=== PATIENT | female | born 1990 | race Caucasian/White ===

== ENCOUNTER 2021-10-14 16:58 | Emergency (ER) | payer BC, SELFPAY ==
--- NOTE | ~2021-10-14 | XR_ITS ---
EXAMINATION: XR foot RT min 3V DATE: 10/14/2021 17:22 INDICATION: Right foot injury and pain. TECHNIQUE: 4 views of right foot were obtained. COMPARISON: None. FINDINGS: Bone alignment is normal. No fracture. Joint spaces are well maintained. IMPRESSION: 1. No fracture. Reviewed, dictated and finalized at location A. [employer] IMPRESSION: 1. No fracture.
--- NOTE | ~2021-10-14 | XR_ITS ---
EXAMINATION: XR ankle RT min 3V DATE: 10/14/2021 17:22 INDICATION: Right ankle injury and pain. TECHNIQUE: 4 views of right ankle were obtained. COMPARISON: None. FINDINGS: Bone alignment is normal. No fracture. Joint spaces are well maintained. There is ankle sof t tissue swelling. IMPRESSION: 1. No fracture. Reviewed, dictated and finalized at location A. IMPRESSION: 1. No fracture.
[2021-10-14 17:07] VITALS: BP 116/67; PULSE 83; RESP 16; TEMP 36.4; O2SAT 98
--- NOTE | 2021-10-14 19:15 | ED.LOWEXIN ---
HPI - Extremity Injury (Lower) General Chief Complaint: Extremity Injury, Lower Stated Complaint: Right Ankle Pain Time Seen by Provider: 10/14/21 18:59 Source: patient and RN notes reviewed Mode of arrival: ambulatory Limitations: no limitations History of Present Illness HPI Narrative: Patient presents today complaining of right ankle injury. She fell down some steps and hyper plantarflexed her foot today. Denies numbness or tingling. Currently rates her pain 7/10. She has been ambulatory since the injury with increased pain. She has applied ice but taken no medication for symptoms prior to arrival. MD complaint: ankle injury Related Data Home Medications Medication Instructions Recorded Confirmed levonorgestrel 20 mcg/24 hours (7 1 device I-UTERINE ONCE 01/05/20 10/14/21 yrs) 52 mg intrauterine device multivitamin 1 tablet PO DAILY 01/05/20 10/14/21 fluoxetine 10 mg capsule 10 mg PO DAILY 03/25/21 10/14/21 baclofen 10 mg PO DAILY PRN 10/14/21 10/14/21 metoprolol succinate 25 mg PO DAILY 10/14/21 10/14/21 Allergies Allergy/AdvReac Type Severity Reaction Status Date / Time amoxicillin Allergy Rash Verified 10/14/21 18:54 Review of Systems Review of Systems: CONSTITUTIONAL: Denies body aches, fever, chills, or sweats. EYES: Denies visual changes, redness, or discharge. ENT: Denies rhinorrhea, congestion, sore throat, or otalgia. CARDIOVASCULAR: Denies chest pain, palpitations, or edema. RESPIRATORY: Denies cough or dyspnea. GASTROINTESTINAL: Denies abdominal pain, nausea, vomiting, or diarrhea. GENITOURINARY: Denies dysuria or hematuria. SKIN: Denies rash, itching, or wounds. MUSCULOSKELETAL: Denies back pain, or myalgia. + Right ankle injury NEUROLOGIC: Denies headache, numbness, tingling, or weakness. PSYCH: Denies depression or anxiety. [facility] Past Medical History Medical History (Updated 10/14/21 @ 19:19 by Bettina Mullen, ILYA, ) Vaginal delivery x 2 Family History Family History Mother Hypertension Grandparent Family history of pancreatic cancer Family history of lung cancer Family history of type 2 diabetes mellitus Family history of heart disease in male family member before age 55 Social History Social History Smoking status: Never smoker Alcohol intake: current Comments At time of signature, I have reviewed and agree with nursing past medical, surgical, social and family history unless otherwise noted. Please see nursing chart for further information. There is no relevant family history pertinent to the presenting complaint Exam Narrative: GENERAL: Well-appearing, well-nourished, and in no acute distress. HEAD: Normocephalic, atraumatic. EYES: EOMI. No redness or drainage. Conjunctivae normal. ENT: Mucous membranes pink and moist. NECK: Normal AROM. CHEST: No respiratory distress. EXTREMITIES: Right ankle: Tenderness about the entire anterior ankle. No tenderness to the foot. No edema noted. No ecchymosis or erythema noted. No deformity noted. Distal sensation intact. Capillary refill normal. Pedal pulse normal. Decreased range of motion due to pain. No bony tenderness to the lateral and medial malleolus. SKIN: Warm, dry, no rash. Capillary refill normal. Normal skin turgor. NEURO: No focal deficits. Alert and oriented x3. Gait steady. PSYCH: Normal affect. No signs of depression or anxiety. Course Vital Signs Vital signs: Vital Signs Temperature 97.5 F L 10/14/21 17:07 Pulse Rate 83 10/14/21 17:07 Respiratory Rate 16 10/14/21 17:07 Blood Pressure 116/67 10/14/21 17:07 Pulse Oximetry 98 10/14/21 17:07 Temperature 97.5 F L 10/14/21 17:07 Pulse Rate 83 10/14/21 17:07 Respiratory Rate 16 10/14/21 17:07 Blood Pressure 116/67 10/14/21 17:07 Pulse Oximetry 98 10/14/21 17:07 Reviewed MDM - Ex
== END 2021-10-14 19:25 | disposition home or self-care (01) ==
PROVIDERS: Emergency Provider Nurse Practitioner
DX: S93.401A Sprain of unspecified ligament of right ankle, initial encounter (principal); W10.9XXA Fall (on) (from) unspecified stairs and steps, initial encounter; F41.9 Anxiety disorder, unspecified; F32.A Depression, unspecified
CPT/HCPCS: 73610; 73630; 99213; G0463

== ENCOUNTER 2021-11-10 15:05 | Emergency (ER) | payer BC, SELFPAY ==
[2021-11-10 15:08] VITALS: BP 116/66; PULSE 91; RESP 18; TEMP 36.5; O2SAT 98
--- NOTE | 2021-11-10 15:30 | PC.NURSE ---
Pt to the intake desk and states that her dr called her in some zofran and she is going to leave. pt ambulated the the exit with no difficulty
== END 2021-11-11 05:15 | disposition left against medical advice (07) ==
LOC: ANHED 15:50
DX: K92.0 Hematemesis (principal)
CPT/HCPCS: 99199

== ENCOUNTER 2022-01-09 11:00 | Emergency (ER) | payer BC, SELFPAY ==
--- NOTE | 2022-01-09 11:07 | ED.URI ---
HPI - URI/Sore Throat General Chief Complaint: Upper Respiratory Infection Stated Complaint: Throat pain Time Seen by Provider: 01/09/22 11:07 Source: patient, family, RN notes reviewed and old records reviewed Mode of arrival: ambulatory Limitations: no limitations History of Present Illness HPI Narrative: 31-year-old female presents to the [facility] with complaints of a sore throat since yesterday. States she had a low-grade fever last night, 99. Pain with swallowing. States that she took an at home covid test and it was negative. MD elicited complaint: sore throat Related Data Home Medications Medication Instructions Recorded Confirmed levonorgestrel 20 mcg/24 hours (7 1 device I-UTERINE ONCE 01/05/20 01/09/22 yrs) 52 mg intrauterine device multivitamin 1 tablet PO DAILY 01/05/20 01/09/22 fluoxetine 10 mg capsule 10 mg PO DAILY 03/25/21 01/09/22 baclofen 10 mg PO DAILY PRN 10/14/21 01/09/22 metoprolol succinate 25 mg PO DAILY 10/14/21 01/09/22 Allergies Allergy/AdvReac Type Severity Reaction Status Date / Time amoxicillin Allergy Rash Verified 01/09/22 11:02 Review of Systems Review of Systems: All systems reviewed & are unremarkable except as noted in HPI and below Constitutional: Constitutional: Reports as per HPI, Denies chills, Reports fever(s) (99) and Denies headache(s) Eyes: Eyes: Reports no additional eye complaints ENT: Reports as per HPI, Denies vertigo, Denies dizziness, Denies headache(s), Denies nasal congestion and Reports sore throat Cardiovascular: Cardiovascular: Reports no additional cardiovascular complaints, Denies chest pain, Denies syncope, Denies rapid heart rate and Denies dyspnea Respiratory: Respiratory: Reports no additional respiratory complaints, Denies cough, Denies dyspnea and Denies wheezing Gastrointestinal: Gastrointestinal: Reports no additional gastrointestinal complaints, Denies abdominal pain, Denies diarrhea, Denies nausea and Denies vomiting Musculoskeletal: Musculoskeletal: Reports no additional musculoskeletal complaints and Denies numbness Integumentary/Breasts: Skin/Breast: Reports system reviewed and no additional complaints, except as docu Neurologic: Reports system reviewed and no additional complaints, except as documented, Denies vertigo, Denies dizziness, Denies syncope, Denies headache(s), Denies focal weakness and Denies numbness Psychiatric: Psychiatric: Reports no additional psychiatric complaints Allergic/Immunologic: Allergic/Immunologic: Reports no additional allergic/immunologic complaints and Denies wheezing PMFSH Past Medical History Medical History (Updated 01/09/22 @ 11:36 by Marlyn Coleman APRN) Anxiety and depression Vaginal delivery x 2 Family History Family History Mother Hypertension Grandparent Family history of pancreatic cancer Family history of lung cancer Family history of type 2 diabetes mellitus Family history of heart disease in male family member before age 55 Social History Social History Smoking status: Never smoker Alcohol intake: current Comments At the time of my signature, I reviewed and agree with the nursing past medical, surgical, social, and family history. There is no relevant family history pertinent to the patient complaint. Exam Const: General: cooperative, healthy appearing, no acute distress, well developed and alert Nutritional Appearance: well nourished Orientation/consciousness: patient oriented x3 Limitations: no limitations HENMT: Head: normal to inspection Ears: external ears normal, TM's normal bilaterally and EAC's normal General nose exam: Normal nasal mucous membranes and turbinates present Face and sinus: normal facial exam Teeth and gingiva: dentition normal Throat: posterior oropharynx normal, tonsils normal, uvula midline and no uvular edema Eyes: Conjunctivae
[2022-01-09 11:09] VITALS: BP 112/62; PULSE 70; RESP 16; TEMP 37.3; O2SAT 100
[2022-01-10 17:14] LABS: SARS-CoV-2 RNA PCR Negative
== END 2022-01-09 11:40 | disposition home or self-care (01) ==
PROVIDERS: Emergency Provider Nurse Practitioner; PCP Nurse Practitioner Family
DX: J02.9 Acute pharyngitis, unspecified (principal); Z20.822 Contact with and (suspected) exposure to COVID-19; F41.9 Anxiety disorder, unspecified; F32.A Depression, unspecified
CPT/HCPCS: 87081; 87804; 87880; 99213; C9803; G0463; U0003; U0005

== ENCOUNTER 2022-01-14 08:59 | Emergency (ER) | payer OTHER, BC, SELFPAY ==
--- NOTE | 2022-01-14 09:03 | ED.ANIMALBIT ---
HPI - Animal Bite General Chief Complaint: Animal Bite Stated Complaint: Cat Bite and scratch Time Seen by Provider: 01/14/22 09:10 Source: patient, RN notes reviewed and old records reviewed Mode of arrival: ambulatory Limitations: no limitations History of Present Illness HPI narrative: 31-year-old female presents to the [facility] with complaints of 2 puncture wounds from a cat to the left volar aspect mid forearm and then multiple scratches to the antecubital and to the fingers. 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 Occurred approximately 830 this morning Patient reports that she was taking a cat out of the carrier getting it ready for neuter when the cat bit and scratched her. She believes the cat is up-to-date on immunizations Unsure of last Tdap, states it was before 2016 complaint: animal bite Animal: cat Related Data Home Medications Medication Instructions Recorded Confirmed levonorgestrel 20 mcg/24 hours (7 1 device I-UTERINE ONCE 01/05/20 01/14/22 yrs) 52 mg intrauterine device multivitamin 1 tablet PO DAILY 01/05/20 01/09/22 fluoxetine 10 mg capsule 10 mg PO DAILY 03/25/21 01/14/22 baclofen 10 mg PO DAILY PRN 10/14/21 01/09/22 metoprolol succinate 25 mg PO DAILY 10/14/21 01/14/22 Allergies Allergy/AdvReac Type Severity Reaction Status Date / Time amoxicillin Allergy Rash Verified 01/09/22 11:02 Review of Systems Review of Systems: All systems reviewed & are unremarkable except as noted in HPI and below Constitutional: Constitutional: Reports no additional constitutional complaints, Denies chills and Denies fever(s) Eyes: Eyes: Reports no additional eye complaints ENT: Reports system reviewed and no additional complaints, except as documented Cardiovascular: Cardiovascular: Reports no additional cardiovascular complaints Respiratory: Respiratory: Reports no additional respiratory complaints Gastrointestinal: Gastrointestinal: Reports no additional gastrointestinal complaints Musculoskeletal: Musculoskeletal: Reports no additional musculoskeletal complaints Integumentary/Breasts: Skin/Breast: Reports as per HPI Comments: 2 puncture wounds left volar aspect upper forearm, multiple scratch wounds noted to the antecubital and hand. All clean. Neurologic: Reports system reviewed and no additional complaints, except as documented Psychiatric: Psychiatric: Reports no additional psychiatric complaints Allergic/Immunologic: Allergic/Immunologic: Reports no additional allergic/immunologic complaints PMFSH Past Medical History Medical History Anxiety and depression Vaginal delivery x 2 Family History Family History Mother Hypertension Grandparent Family history of pancreatic cancer Family history of lung cancer Family history of type 2 diabetes mellitus Family history of heart disease in male family member before age 55 Social History Social History Smoking status: Never smoker Alcohol intake: current Comments At the time of my signature, I reviewed and agree with the nursing past medical, surgical, social, and family history. There is no relevant family history pertinent to the patient complaint. Exam Const: General: healthy appearing, no acute distress and alert Nutritional Appearance: well nourished Orientation/consciousness: patient oriented x3 Limitations: no limitations HENMT: Head: normal to inspection Ears: external ears normal Eyes: Pupils: Equal, round and reactive pupils present Neck: Neck: normal visual inspection, no lymphadenopathy and no meningeal signs Chest: Chest palpation & inspection: normal inspection of the chest Resp: Effort & Inspection: normal respiratory effort and no use of accessory muscles Auscultation: clear to auscultation bilaterally, no crackles, no rales,
[2022-01-14 09:14] VITALS: BP 110/66; PULSE 68; RESP 18; TEMP 37.1; O2SAT 99
[2022-01-14] MEDS: TETANUS,DIPHTHERIA,AC PERTUSSIS ADULT (0.5 ML) BOOSTRIX IM (09:34)
== END 2022-01-14 10:05 | disposition home or self-care (01) ==
PROVIDERS: Emergency Provider Nurse Practitioner; PCP Nurse Practitioner Family
DX: S51.832A Puncture wound without foreign body of left forearm, initial encounter (principal); W55.01XA Bitten by cat, initial encounter; Z23 Encounter for immunization; F41.9 Anxiety disorder, unspecified; F32.A Depression, unspecified
CPT/HCPCS: 90471; 90715; 99213; G0463

== ENCOUNTER 2022-11-30 11:19 | Emergency (ER) | payer BC, SELFPAY ==
[2022-11-30 12:06] VITALS: BP 106/76; PULSE 67; RESP 16; TEMP 36.7; O2SAT 99
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
== END 2022-11-30 13:35 | disposition home or self-care (01) ==
PROVIDERS: Emergency Provider Nurse Practitioner Family
DX: J34.0 Abscess, furuncle and carbuncle of nose (principal); L03.211 Cellulitis of face; J34.89 Other specified disorders of nose and nasal sinuses; F41.9 Anxiety disorder, unspecified; F32.A Depression, unspecified
CPT/HCPCS: 99213; G0463

== ENCOUNTER 2022-11-30 19:37 | Emergency (ER) | payer BC, SELFPAY ==
[2022-11-30 19:39] VITALS: BP 135/81; PULSE 100; RESP 18; TEMP 36.4; O2SAT 99
--- NOTE | 2022-11-30 20:03 | ED.GENADULT ---
HPI - General Adult General Chief complaint: Skin/Abscess/Foreign Body Stated complaint: Facial swelling Time Seen by Provider: 11/30/22 19:45 History of Present Illness HPI narrative: 32-year-old female presenting to the emergency department for evaluation of left-sided facial cellulitis. Patient reports that her symptoms started on Thursday. Patient did have follow-up today with urgent care and was to be started on Bactrim and prednisone. Patient was told to start the antibiotic today and the prednisone tomorrow. Patient reports she did take the Bactrim approximately 4 PM. Patient was told to return to be evaluated if she had any worsening symptoms. Patient states that the redness has progressed across her left cheek. Patient also reports some increased left facial pain. Patient denies any difficulty breathing or swallowing. Patient denies any new swelling of tongue lips or throat. Related Data Home Medications Medication Instructions Recorded Confirmed levonorgestrel 20 mcg/24 hours (8 1 device intrauterine ONCE 01/05/20 11/30/22 yrs) 52 mg intrauterine device (Mirena) multivitamin (Daily Multi-Vitamin 1 tablet PO DAILY 01/05/20 11/30/22 tablet) fluoxetine 10 mg capsule 10 mg PO DAILY 03/25/21 11/30/22 metoprolol succinate 25 mg 25 mg PO DAILY 10/14/21 11/30/22 tablet,extended release 24 hr Allergies Allergy/AdvReac Type Severity Reaction Status Date / Time amoxicillin Allergy Rash Verified 11/30/22 20:16 vancomycin Allergy Hives Verified 12/01/22 13:31 Review of Systems Review of Systems: CONSTITUTIONAL: Denies fever, chills, or sweats. EYES: Denies visual changes, redness, or discharge. ENT: Denies rhinorrhea, congestion, sore throat, or otalgia. CARDIOVASCULAR: Denies chest pain, palpitations, or edema. RESPIRATORY: Denies cough or dyspnea. GASTROINTESTINAL: Denies abdominal pain, nausea, vomiting, or diarrhea. GENITOURINARY: Denies dysuria or hematuria. SKIN: See HPI MUSCULOSKELETAL: Denies back pain, joint pain, or myalgia. NEUROLOGIC: Denies headache, numbness, or weakness. PMFSH Past Medical History Medical History Anxiety and depression Vaginal delivery x 2 Family History Family History Mother Hypertension Grandparent Family history of pancreatic cancer Family history of lung cancer Family history of type 2 diabetes mellitus Family history of heart disease in male family member before age 55 Social History Social History Smoking status: Never smoker Alcohol intake: current Exam Narrative: APPEARANCE: Well appearing, no pain, no distress, well-nourished. HEAD: normocephalic, atraumatic. EYES: PERRLA/EOMI, conjunctivae clear. NOSE: Normal no drainage EARS:TMS clear with good light reflex. THROAT: Pharynx clear, no exudate. NECK: Supple. No adenopathy, no masses. RESPIRATORY: Airway patent, respirations nonlabored. Clear to auscultation bilaterally, no rales, rhonchi, wheezing. CARDIOVASCULAR: Regular rate and rhythm without murmurs rubs or gallops. ABDOMINAL: Soft, nontender, nondistended, normal bowel sounds MUSCULOSKELETAL: Moves all extremities. Strength/ROM intact, No edema, No calf tenderness. NEURO: Alert. Cranial nerves II through XII intact. Grossly intact SKIN: Facial cellulitis over the left zygomatic arch and left lateral aspects of the nose. No vesicular appearance. Course Course Emergency Course: Patient does appear to have a left-sided facial cellulitis. No vesicular appearance to suggest shingles. Patient did take her antibiotics approximately 7 hours ago. Suspect that the antibiotics have just not had enough time to be effective. However patient is being treated with a dose of IV antibiotics. Vital Signs Vital signs: Vital Signs Temperature 97.6 F 11/30/22 19:39 Pulse Rate 100
[2022-11-30] MEDS: CLINDAMYCIN 600 MG/D5W 50 ML 600 MG/50 ML PIGGYBACK 100 MG IVPB (20:25)
[2022-11-30] MEDS: SODIUM CHLORIDE 0.9% IV 1,000 ML 999 ML IV CONT (20:25)
[2022-11-30 20:33] LABS: Basophils Absolute Auto 0.1 K/mm3 (0.0-0.1); Basophils Percent Auto 0.5 % (0.2-1.2); Eosinophils Absolute Auto 0.1 K/mm3 (0-0.3); Eosinophils Percent Auto 1.1 % (0-4.4); Hematocrit 40.9 % (37.0-47.0); Hemoglobin 13.6 g/dL (12.0-15.0); Immature Granulocyte Absolute 0.03 K/mm3 (0.00-0.031); Immature Granulocyte Percent A 0.3 % (0-0.5); Lymphocytes Absolute Auto 1.78 K/mm3 (0.9-3.2); Lymphocytes Percent Auto 16.2 % (18.3-44.2); Mean Corpuscular HGB Conc 33.3 g/dl (32-36); Mean Corpuscular Hemoglobin 30.7 pg (26-34); Mean Corpuscular Volume 92.3 fl (80-100); Mean Platelet Volume 10.4 fl (7.4-10.4); Monocytes Absolute Auto 0.7 K/mm3 (0.1-0.6); Monocytes Percent Auto 6.6 % (2.6-8.5); Neutrophils Absolute Auto 8.3 K/mm3 (1.3-6.7); Neutrophils Percent Auto 75.3 % (45.5-73.1); Platelet Count Result 180 k/mm3 (150-375); Red Blood Count 4.43 M/mm3 (4.2-5.4); Red Cell Distribution Width 12.6 % (11.5-14.5)
[2022-11-30 20:44] LABS: Potassium 3.8 mmol/L (3.4-5.0)
[2022-11-30 20:47] LABS: Anion Gap 4 mmol/L (8-16); Blood Urea Nitrogen 11 mg/dL (7-17); Calcium 8.6 mg/dL (8.4-10.2); Carbon Dioxide 30 mmol/L (22-30); Chloride 100 mmol/L (98-107); Estimated CRCL calculation 101 ml/min; Estimated Glomerular Filt Rate > 60; Glucose 109 mg/dL (65-110); Sodium 134 mmol/L (137-145)
== END 2022-11-30 21:50 | disposition home or self-care (01) ==
PROVIDERS: Emergency Provider Emergency Medicine
DX: L03.211 Cellulitis of face (principal); F41.9 Anxiety disorder, unspecified; F32.A Depression, unspecified
CPT/HCPCS: 36415; 80048; 85025; 96365; 99284; J7030

== ENCOUNTER 2022-12-01 09:46 | Emergency (ER) | payer BC, SELFPAY ==
--- NOTE | ~2022-12-01 | CT_ITS ---
EXAMINATION: CT facial bones w con DATE: 12/01/2022 12:36 INDICATION: Facial cellulitis TECHNIQUE: Computed tomography (CT) of the facial bones was performed with 75 cc Omnipaque 350 intrav enous contrast. The dose-length product was 372.47 mGy-cm. Automated exposure control and iterative r econstruction technique were employed. COMPARISON: None FINDINGS: No intracranial abnormality is identified. Mild subcutaneous edema of the left maxillary so ft tissues. Minimal underlying fatty infiltration. No discrete walled off fluid collection to suggest abscess. Mild submandibular lymphadenopathy, likely reactive.. No significant bone or joint abnormal ity. Paranasal sinuses and mastoids are pneumatized. Orbits are unremarkable. No post septal abnormal ities. IMPRESSION: 1. Mild subcutaneous edema and underlying fatty infiltration in the left maxillary region, suspicious for cellulitis. No evidence for abscess. Reviewed, dictated and finalized at location A. ASSEMBLER IMPRESSION: 1. Mild subcutaneous edema and underlying fatty infiltration in the left maxill jules region, suspicious for cellulitis. No evidence for abscess.
[2022-12-01 09:48] VITALS: BP 120/66; PULSE 71; RESP 18; TEMP 36.8; O2SAT 99
--- NOTE | 2022-12-01 11:16 | ED.SKABFB ---
HPI - Skin/Abscess/Foreign Bdy General Chief complaint: Skin/Abscess/Foreign Body Stated complaint: cellulitis left cheek Time Seen by Provider: 12/01/22 11:07 History of Present Illness HPI narrative: Pt presents with worsening cellulitis to left cheek. Pt was seen in ER yesterday for same and had labs and was given IV clindamycin. Pt says she has been on bactrim and prednisone for a few days. Pt denies fever or chills. Related Data Home Medications Medication Instructions Recorded Confirmed levonorgestrel 20 mcg/24 hours (8 1 device intrauterine ONCE 01/05/20 11/30/22 yrs) 52 mg intrauterine device (Mirena) multivitamin (Daily Multi-Vitamin 1 tablet PO DAILY 01/05/20 11/30/22 tablet) fluoxetine 10 mg capsule 10 mg PO DAILY 03/25/21 11/30/22 metoprolol succinate 25 mg 25 mg PO DAILY 10/14/21 11/30/22 tablet,extended release 24 hr Allergies Allergy/AdvReac Type Severity Reaction Status Date / Time amoxicillin Allergy Rash Verified 11/30/22 20:16 vancomycin Allergy Hives Verified 12/01/22 13:31 Review of Systems Review of Systems: All systems reviewed & are unremarkable except as noted in HPI and below PMFSH Past Medical History Medical History Anxiety and depression Vaginal delivery x 2 Family History Family History Mother Hypertension Grandparent Family history of pancreatic cancer Family history of lung cancer Family history of type 2 diabetes mellitus Family history of heart disease in male family member before age 55 Social History Social History Smoking status: Never smoker Alcohol intake: current Exam Const: General: healthy appearing and no acute distress Nutritional Appearance: well nourished Orientation/consciousness: patient oriented x3 Limitations: no limitations HENMT: Mouth: Yes Normal oral and palatal mucosa present Teeth and gingiva: dentition normal Throat: posterior oropharynx normal Eyes: Conjunctivae: conjunctivae normal Pupils: Equal, round and reactive pupils present EOM: EOMs intact bilaterally Neck: Neck: normal visual inspection Resp: Effort & Inspection: normal respiratory effort Auscultation: clear to auscultation bilaterally Cardio: Rate: regular rate Rhythm: regular rhythm Skin: Other: cellulitis left zygoma and toward bridge of nose, no abscess felt and no dental source noted Neuro: General: patient oriented x3, moves all extremities and no meningeal signs Cranial nerves: Yes Nystagmus not present Speech: normal speech Gait exam (Neuro): Normal gait present Extrem: General: normal to inspection and no clubbing, cyanosis or edema Psych: Mental Status: mental status grossly normal Affect: normal affect Attitude: cooperative Course Vital Signs Vital signs: Vital Signs Temperature 98.3 F 12/01/22 09:48 Pulse Rate 71 12/01/22 09:48 Respiratory Rate 18 12/01/22 09:48 Blood Pressure 120/66 12/01/22 09:48 Pulse Oximetry 99 12/01/22 09:48 Oxygen Delivery Room Air 12/01/22 09:48 Temperature 98.3 F 12/01/22 09:48 Pulse Rate 71 12/01/22 09:48 Respiratory Rate 18 12/01/22 09:48 Blood Pressure 120/66 12/01/22 09:48 Pulse Oximetry 99 12/01/22 09:48 Oxygen Delivery Room Air 12/01/22 09:48 MDM - Skin/Abscess/Foreign Bdy MDM Narrative Medical decision making narrative: pt claims cellulitis is worse today in spite of bactrim (pt taking 1 po bid not 2) and IV clinda yesterday. Will repeat labs and CT face to make sure is not NEC or subtle abscess. Will give IV vanco dose here while awaiting labs and CT. CT shows cellulitis but no abscess, wbc has improved since yesterday. Pt got hives from IV Vanco so given benadryl and solumedrol which resolved hives. Pt is fine not getting another antibiotic IV. Will double dose of bactrim to 2
[2022-12-01 11:53] LABS: Basophils Percent Auto 0.2 % (0.2-1.2); Eosinophils Percent Auto 0.1 % (0-4.4); Hematocrit 43.3 % (37.0-47.0); Hemoglobin 14.4 g/dL (12.0-15.0); Immature Granulocyte Absolute 0.04 K/mm3 (0.00-0.031); Immature Granulocyte Percent A 0.5 % (0-0.5); Lymphocytes Absolute Auto 0.74 K/mm3 (0.9-3.2); Lymphocytes Percent Auto 8.5 % (18.3-44.2); Mean Corpuscular HGB Conc 33.3 g/dl (32-36); Mean Corpuscular Hemoglobin 30.6 pg (26-34); Mean Corpuscular Volume 91.9 fl (80-100); Mean Platelet Volume 10.4 fl (7.4-10.4); Monocytes Absolute Auto 0.1 K/mm3 (0.1-0.6); Monocytes Percent Auto 1.5 % (2.6-8.5); Neutrophils Absolute Auto 7.8 K/mm3 (1.3-6.7); Neutrophils Percent Auto 89.2 % (45.5-73.1); Platelet Count Result 197 k/mm3 (150-375); Red Blood Count 4.71 M/mm3 (4.2-5.4); Red Cell Distribution Width 12.4 % (11.5-14.5); White Blood Count 8.7 K/mm3 (4.5-10.0)
[2022-12-01 12:03] LABS: Prothrombin Time 12.9 Seconds (11.1-14.7)
[2022-12-01 12:04] LABS: Partial Thromboplastin Time 27.9 SECONDS (22.3-36.8)
[2022-12-01 12:05] LABS: Alanine Aminotransferase 18 U/L (6-35); Albumin Level 4.8 g/dL (3.5-5.1); Alkaline Phosphatase 69 U/L (38-126); Anion Gap 6 mmol/L (8-16); Aspartate Amino Transferase 22 U/L (14-36); Bilirubin,Total 0.4 mg/dL (0.2-1.3); Blood Urea Nitrogen 7 mg/dL (7-17); CRP 2.3 mg/dL (<1.0); Calcium 9.2 mg/dL (8.4-10.2); Carbon Dioxide 27 mmol/L (22-30); Chloride 104 mmol/L (98-107); Estimated CRCL calculation 101 ml/min; Estimated Glomerular Filt Rate > 60; Glucose 102 mg/dL (65-110); Potassium 4.1 mmol/L (3.4-5.0); Sodium 137 mmol/L (137-145)
[2022-12-01 12:07] LABS: Lactic Acid Reflex 1.1 mmol/L (0.7-2.0)
[2022-12-01] MEDS: diphenhydrAMINE HCl INJ 50 MG/ML VIAL 25 MG IV PUSH (13:30)
[2022-12-01] MEDS: methylPREDNISolone SOD SUCC 125 MG VIAL IV PUSH (13:30)
== END 2022-12-01 15:18 | disposition home or self-care (01) ==
PROVIDERS: Emergency Provider Emergency Medicine
DX: L03.211 Cellulitis of face (principal); L50.0 Allergic urticaria; T36.8X5A Adverse effect of other systemic antibiotics, initial encounter; F41.9 Anxiety disorder, unspecified; F32.A Depression, unspecified
CPT/HCPCS: 36415; 70487; 80053; 83605; 85025; 85610; 85730; 86140; 87040; 96365; 96366; 96375; 99284; J1200; J2930; J3370; Q9967

== ENCOUNTER 2023-02-05 17:23 | Emergency (ER) | payer BC, SELFPAY ==
--- NOTE | ~2023-02-05 | CT_ITS ---
EXAMINATION: CT abdomen pelvis w con DATE: 02/05/2023 21:56 INDICATION: Right sided abdominal pain, nausea and vomiting TECHNIQUE: Computed tomography (CT) of the abdomen and pelvis was performed with 100 CC Omnipaque 350 intravenous contrast. Automated exposure control and iterative reconstruction technique were employe d. Exam dose: 582.04 mGy-cm total exam DLP. COMPARISON: 02/05/2023 Limited abdominal ultrasound examination FINDINGS: The lung bases are clear. Normal heart size. No pericardial or pleural effusion. The liver, spleen, pancreas, adrenal glands and kidneys are unremarkable. The gallbladder is distended. No gallbladder wall thickening or pericholecystic fluid or fat strandin g. No bile duct or pancreatic duct dilatation. No urinary tract calculus or hydroureteronephrosis. There is an IUD in the uterus, the left limb approaching the outer margin of the uterine fundus poste rosuperiorly. The ovaries, adnexal areas and urinary bladder are unremarkable. There are some air-fluid levels of the small and large bowel without abnormal dilatation or obstructi on. No bowel wall thickening is noted. The appendix is normal. No intraperitoneal free air. Small fat-containing umbilical hernia. Included skeletal structures are unremarkable. IMPRESSION: Normal appendix Scattered small and large bowel air-fluid levels, suggesting enterocolitis IUD; one limb approaches the outer margin of the uterus posterosuperiorly Reviewed, dictated and finalized at Location A. Reviewed, dictated and finalized at location A.
--- NOTE | ~2023-02-05 | US_ITS ---
US abdomen limited DATE: 02/05/2023 21:15 INDICATION: Right upper quadrant abdominal pain, nausea and vomiting TECHNIQUE: Real-time imaging of liver, pancreas, gallbladder COMPARISON: None FINDINGS: No hepatic or pancreatic space-occupying mass lesion is detected. Normal hepatopedal portal venous flow direction. No gallstones or gallbladder wall thickening or pericholecystic abnormal flui d collection. Negative sonographic Willis's sign. Common bile duct measures 2.6 mm, normal. IMPRESSION: No significant abnormality Reviewed, dictated and finalized at Location A. Reviewed, dictated and finalized at location A. IMPRESSION: No significant abnormality
[2023-02-05 17:27] VITALS: BP 109/82; PULSE 110; RESP 18; TEMP 36.4; O2SAT 100
[2023-02-05 17:48] LABS: Basophils Percent Auto 0.3 % (0.2-1.2); Eosinophils Absolute Auto 0.1 K/mm3 (0-0.3); Eosinophils Percent Auto 0.5 % (0-4.4); Hematocrit 43.1 % (37.0-47.0); Hemoglobin 14.8 g/dL (12.0-15.0); Immature Granulocyte Absolute 0.03 K/mm3 (0.00-0.031); Immature Granulocyte Percent A 0.3 % (0-0.5); Lymphocytes Absolute Auto 0.59 K/mm3 (0.9-3.2); Lymphocytes Percent Auto 5.4 % (18.3-44.2); Mean Corpuscular HGB Conc 34.3 g/dl (32-36); Mean Corpuscular Volume 90.2 fl (80-100); Mean Platelet Volume 10.1 fl (7.4-10.4); Monocytes Absolute Auto 0.5 K/mm3 (0.1-0.6); Monocytes Percent Auto 4.9 % (2.6-8.5); Neutrophils Absolute Auto 9.7 K/mm3 (1.3-6.7); Neutrophils Percent Auto 88.6 % (45.5-73.1); Platelet Count Result 171 k/mm3 (150-375); Red Blood Count 4.78 M/mm3 (4.2-5.4); Red Cell Distribution Width 12.5 % (11.5-14.5); White Blood Count 10.9 K/mm3 (4.5-10.0)
[2023-02-05 17:54] LABS: Alanine Aminotransferase 24 U/L (6-35); Albumin Level 4.9 g/dL (3.5-5.1); Alkaline Phosphatase 63 U/L (38-126); Anion Gap 10 mmol/L (8-16); Aspartate Amino Transferase 26 U/L (14-36); Blood Urea Nitrogen 13 mg/dL (7-17); Calcium 9.2 mg/dL (8.4-10.2); Carbon Dioxide 24 mmol/L (22-30); Chloride 104 mmol/L (98-107); Estimated CRCL calculation 118 ml/min; Estimated Glomerular Filt Rate > 60; Glucose 109 mg/dL (65-110); Lipase 87 U/L (23-300); Potassium 3.6 mmol/L (3.4-5.0); Sodium 138 mmol/L (137-145)
[2023-02-05 20:14] LABS: Appearance Urine Clear (Clear); Bilirubin Urine Negative (Negative); Blood Urine Trace-intact (Negative); Color Urine Yellow (Yellow); Glucose Urine UA Negative (Negative); Ketones Urine 3+ mg/dL (Negative); Leukocyte Esterase Ur Negative LEU/UL (Negative); Nitrate Urine Negative (Negative); Protein Urine 1+ mg/dL (Negative); Specific Grav Ur 1.015 (1.001-1.035); Urobilinogen Urine 0.2 mg/dL (<2.0); pH Urine >=9.0 (5.0-9.0)
--- NOTE | 2023-02-05 20:22 | ED.ABDPAIN ---
HPI - Abdominal Pain General Chief Complaint: Abdominal Pain Stated Complaint: right sided abdominal pain Time Seen by Provider: 02/05/23 19:45 Source: patient Mode of arrival: ambulatory Limitations: no limitations History of Present Illness HPI narrative: Patient is a 32-year-old female who presents to the ED with report of upper abdominal pain. Patient reports she developed pain in her epigastric region around 9 AM this morning at work. Pain persisted and has since become more localized to the right upper abdomen. Radiates around to right mid back. She also reports having several episodes of nausea with emesis, diarrhea this morning. She denies any hematemesis, rectal bleeding, melena, fevers, urinary sx's, CP, SOB. Patient has been unable to keep down any food, fluid, pain medicine. No sick contacts. Related Data Home Medications Medication Instructions Recorded Confirmed levonorgestrel 21 mcg/24 hours (8 1 device intrauterine ONCE 01/05/20 01/14/23 yrs) 52 mg intrauterine device (Mirena) multivitamin (Daily Multi-Vitamin 1 tablet PO DAILY 01/05/20 01/14/23 tablet) fluoxetine 10 mg capsule 10 mg PO DAILY 03/25/21 01/14/23 metoprolol succinate 25 mg 25 mg PO DAILY 10/14/21 01/14/23 tablet,extended release 24 hr Allergies Allergy/AdvReac Type Severity Reaction Status Date / Time amoxicillin Allergy Rash Verified 01/14/23 14:26 vancomycin Allergy Hives Verified 01/14/23 14:26 Review of Systems Review of Systems: CONSTITUTIONAL: Denies fever, chills, or sweats. CARDIOVASCULAR: Denies chest pain. RESPIRATORY: Denies dyspnea. GASTROINTESTINAL: See HPI. GENITOURINARY: Denies dysuria or hematuria. SKIN: Denies rash or itching. MUSCULOSKELETAL: See HPI. NEUROLOGIC: Denies headache, numbness, or weakness. All systems reviewed & are unremarkable except as noted in HPI and below PMFSH Past Medical History Medical History Anxiety and depression Vaginal delivery x 2 Surgical History Surgical History No pertinent past surgical history Family History Family History Mother Hypertension Grandparent Family history of pancreatic cancer Family history of lung cancer Family history of type 2 diabetes mellitus Family history of heart disease in male family member before age 55 Social History Social History Smoking status: Never smoker Alcohol intake: current Substance use: never Substance use type: does not use Lack of Transportation: No Lack of Food: Never True Current Housing: I Have Housing Concerned About Future Housing: No Difficulty Paying Gas/Electric Bills: No Difficulty Paying for Meds: No Currently Unemployed: No Education: Associate Degree Difficulty w/ Childcare or Family Care: No Exam Narrative: GENERAL: Well appearing, obese, non-toxic, in no acute distress. HEAD: Normocephalic, atraumatic. NECK: Supple. No adenopathy, no masses. RESPIRATORY: Airway patent, respirations nonlabored. Clear to auscultation bilaterally, no rales, rhonchi, wheezing. CARDIOVASCULAR: Regular rate and rhythm without murmurs, rubs, or gallops. Peripheral pulses 2+ and equal bilaterally. ABDOMINAL: Soft, tenderness throughout epigastric region and right upper quadrant, nondistended, no hepatosplenomegaly. Normoactive BS. MUSCULOSKELETAL: Moves all extremities. Strength/ROM intact without gross deformities. SKIN: Warm, dry, normal color. No rashes. NEURO: A&O X3. Speech clear. Cranial nerves II-XII grossly intact. Steady gait. No ataxic movements. PSYCHIATRIC: Appropriate mood and affect. Normal interaction. Course Vital Signs Vital signs: Vital Signs Temperature 97.6 F 02/05/23 17:27 Pulse Rate 110 H 02/05/23 17:27 Respiratory
[2023-02-05 20:32] LABS: Add Urine Microscopic? YES; Squamous Epithelial Cell Urine Few /hpf (Few); WBC Urine 0-3 /hpf (0-3)
[2023-02-05 20:33] LABS: Bacteria Urine Trace /hpf
[2023-02-05 20:34] LABS: Mucus Urine Few /lpf; Pregnancy On Board Control Positive; Urine Pregnancy Test Negative
[2023-02-05] MEDS: SODIUM CHLORIDE 0.9% IV 1,000 ML 999 ML IV CONT (20:40)
[2023-02-05] MEDS: MORPHINE SULFATE (*CRX) 4 MG/ML INJ IV PUSH (20:40)
[2023-02-05] MEDS: ONDANSETRON INJ 4 MG/2 ML VIAL IV PUSH ×2 (20:49→23:27)
[2023-02-05] MEDS: FAMOTIDINE 20 MG/2 ML VIAL IV PUSH (23:27)
== END 2023-02-05 23:58 | disposition home or self-care (01) ==
PROVIDERS: Emergency Medicine; Emergency Provider Physician Assistant
DX: K52.9 Noninfective gastroenteritis and colitis, unspecified (principal); R10.9 Unspecified abdominal pain; F41.9 Anxiety disorder, unspecified; F32.A Depression, unspecified
CPT/HCPCS: 36415; 74177; 76705; 80053; 81001; 81025; 83690; 85025; 96361; 96374; 96375; 96376; 99284; J2270; J2405; J7030; Q9967

== ENCOUNTER 2024-05-06 08:05 | Outpatient (CLI) | payer BC, SELFPAY ==
--- NOTE | ~2024-05-06 | MMUS_ITS ---
EXAMINATION: MM diagnostic teri BI w christina, US breast RT limited HISTORY: Palpable right breast abnormality TECHNIQUE: Additional 3-D tomosynthesis images of the breasts were performed and synthetic 2-D images were generated. CAD analysis was submitted and interpreted. High resolution Limited right breast ult rasound was performed. COMPARISON: No prior studies for comparison. BREAST PARENCHYMAL COMPOSITION: Not dense: There are scattered areas of fibroglandular density. FINDINGS: MAMMOGRAPHIC FINDINGS: There are no suspicious masses, calcifications or architectural distortion in either breast to sugges t malignancy. ULTRASOUND: Limited right breast ultrasound: Normal heterogeneous echotexture without focal solid or cystic mass. IMPRESSION: 1. No evidence for malignancy in either breast. 2. Routine yearly screening mammogram and regular clinical breast examination are recommended. BI-RADS Category 1: Negative Reviewed, dictated and finalized at location B. IMPRESSION: 1. No evidence for malignancy in either breast. 2. Routine yearly screening mammogram and regular clinical breast examination a re recommended. BI-RADS Category 1: Negative
== END 2024-05-06 08:06 ==
LOC: MICIMG 08:07
PROVIDERS: PCP Nurse Practitioner Obstetrics & Gynecology; Visit Provider Nurse Practitioner Obstetrics & Gynecology
DX: N63.10 Unspecified lump in the right breast, unspecified quadrant (principal)
CPT/HCPCS: 76642; 77062; 77066; G0279

== ENCOUNTER 2025-08-10 10:23 | Outpatient (CLI) | payer BC, SELFPAY ==
--- NOTE | ~2025-08-10 | MMUS_ITS ---
EXAMINATION: MM diagnostic teri BI w christina, US breast BI limited INDICATION: 34-year old female; Presents for evaluation of palpable lump felt by clinician in the right breast at 10:00 location, Green left nipple discharge about 2 weeks ago and discoloration with skin depression on the left breast. COMPARISON: 05/06/2024 TECHNIQUE: Digital breast tomosynthesis CC and MLO views of Both breasts and compression views of Both breasts were obtained with computer-aided detection to assist in interpretation of the study. MAMMOGRAM FINDINGS: There are scattered areas of fibroglandular density. There are no suspicious masses, calcifications, architectural distortion or any other abnormality in either breast. RIGHT BREAST ULTRASOUND FINDINGS: Targeted sonographic evaluation of the palpable area was completed. There is no sonographic abnormality that correlates to the area of palpable lump. LEFT BREAST ULTRASOUND FINDINGS: Targeted sonographic evaluation of the palpable area and area of skin discoloration as well as subareolar region was completed. There is no sonographic abnormality identified. IMPRESSION: 1. No mammographic or sonographic finding correlates to the palpable lump in the RIGHT breast. 2. No mammographic evidence of malignancy within the LEFT breast. Recommendations: Clinical management of patient's palpable lumps and nipple discharge. Follow-up as clinically warranted. Consider bilateral breast MRI for further evaluation of nipple discharge if clinically warranted. BI-RADS 1, NEGATIVE Reviewed, dictated and finalized at location B. IMPRESSION: 1. No mammographic or sonographic finding correlates to the palpable lump in th e RIGHT breast. 2. No mammographic evidence of malignancy within the LEFT breast. Recommendations: Clinical management of patient's palpable lumps and nipple discharge. Follow-up as clinically warranted. Consider bilateral breast MRI for further evaluation of nipple discharge if clinically warranted. BI-RADS 1, NEGATIVE
--- OUTSIDE RECORDS SUMMARY | 2025-08-10 11:34 | XMS_ITS | Encounter Summary ---
Author Organization [facility] Address [address] [place] [address] Care Team Providers Care Balloon Artist Name Role Phone Unavailable Primary Care Provider Unavailabl e Encounter Details Date Type Department Care Team (Late st Contact Info) Description 01/21/2023 Lab Requisition [facility] DermPath Lab [address] [place] [address] Gonzalez Majano MD [address] [place] [address] Social History Tobacco Use Types Packs/Day Years Used Date Smoking Tobacco: Never Assessed Comments Unknown Sex and Gender Information Value Date Recorded Sex Assigned at Not on file Legal Sex Female 3:36 PM 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 Gender Identity Not on file Sexual Orientation Not on file documented as of this encounter Plan of Treatment Not on file documented as of this encounter Procedures Procedure Name Priority Date/Time Associated Diagnosis Comments DERMATOPATHOLOGY Routine 01/21/2023 12:0 0 AM 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 documented in this encounter Results * DERMATOPATHOLOGY (01/21/2023 12:00 AM 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) Case Report Dermatopathology Report Case: [id number] Authorizing Provider: Gonzalez Majano MD Collected: 01/21/2023 12:00 AM Ordering Location: [facility] DermPath Lab Received: 01/21/2023 04:36 PM Pathologist: Coty Carr MD Specimen: Skin, right upper forehead at hairline 3 2:50 PM 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 DERMATOPATHOLOGY LABORATORY Final Diagnosis Specimen A. SKIN, right upper forehead at hairline: NO TISSUE RECEIVED IN VIAL 3 2:50 PM 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 DERMATOPATHOLOGY LABORATORY at 1450 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 Clinical History Nevus R/O atypia. Path#[id number] 3 2:50 PM 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 DERMATOPATHOLOGY LABORATORY Gross Description Specimen A: Received is one formalin filled container labeled with the patient's name and designated right upper forehead at hairline, no specimen vial. 3 2:50 PM [facility] DERMATOPATHOLOGY LABORATORY Microscopic Description Specimen A. SKIN, right upper forehead at hairline: Received was one formalin filled container. The vial had no tissue for processing. COMMENT: This finding was discussed with the clinician's office. 3 2:50 PM 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 DERMATOPATHOLOGY LABORATORY Disclaimer An external and internal positive and negative controls are appropriate for the histochemical, immunohistochemical and immunofluorescence stain(s) in this case (if any), except where stated explicitly. The performance characteristics of the stain(s) cited in this report were developed and its performance characteristic determined by the Dermatopathology Laboratory at [facility], directed by Dr. Tank Lugo. These tests need not be, and therefore are not, approved by the [place] Food and Drug Administration. The tests are used for clinical purposes. Billing Codes Specimen Charges Stain Charges 3 2:50 PM 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 DERMATOPATHOLOGY LABORATORY Embedded Images 3 2:50 PM [facility] DERMATOPATHOLOGY LABORATORY Pathology/Cytolog y TISSUE SPECIMEN FROM SKIN / Unknown 01/21/2023 01/21/2023 4:36 PM 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 Gonzalez Majano MD LAB - PATHOLOGY/CYTOLOGY ORDER MINA Final Result DERMATOPATHOLOGY LABORATORY [facility] - Department of Dermatology [address] [place] [address], [facility] [phone] documented in this encounter Visit Diagnoses Not on filedocumented in this encounter
--- OUTSIDE RECORDS SUMMARY | 2025-08-10 11:34 | XMS_ITS | Encounter Summary ---
Author Organization [facility] Address [address] [place] [address] Care Team Providers Care Relay Assembler Name Role Phone Unavailable Primary Care Provider Unavailabl e Encounter Details Date Type Department Care Team (Late st Contact Info) Description 01/22/2021 Lab Requisition [facility] DermPath Lab [address] [place] [id number] Gonzalez Majano MD [address] [place] [address] Social History Tobacco Use Types Packs/Day Years Used Date Smoking Tobacco: Never Assessed Comments Unknown Sex and Gender Information Value Date Recorded Sex Assigned at Not on file Legal Sex Female 3:36 PM GAS METER INSTALLER HELPER Gender Identity Not on file Sexual Orientation Not on file documented as of this encounter Plan of Treatment Not on file documented as of this encounter Procedures Procedure Name Priority Date/Time Associated Diagnosis Comments DERMATOPATHOLOGY Routine 01/18/2021 3:33 AM GAS METER INSTALLER HELPER documented in this encounter Results * DERMATOPATHOLOGY (01/18/2021 3:33 AM GAS METER INSTALLER HELPER) Case Report Dermatopathology Report Case: [id number] Authorizing Provider: Gonzalez Majano MD Collected: 01/18/2021 03:33 AM Ordering Location: [facility] DermPath Lab Received: 01/22/2021 06:31 AM Pathologist: Autumn Leahy MD Specimen: Skin, right abd 4:52 PM GAS METER INSTALLER HELPER DERMATOPATHOLOGY LABORATORY Final Diagnosis Specimen A. SKIN, right abd: LENTIGINOUS MELANOCYTIC NEVUS, COMPOUND TYPE, IRRITATED (COMPOUND MELANOCYTIC NEVUS WITH ARCHITECTURAL DISORDER) (D22.5) 4:52 PM GAS METER INSTALLER HELPER DERMATOPATHOLOGY LABORATORY at [address] [facility] Clinical History Nevus R/O atypia. Path# [id number]. 4:52 PM [facility] DERMATOPATHOLOGY LABORATORY Gross Description Specimen A: Received is one formalin filled container labeled with the patient's name and designated right abd. The specimen consists of a shave biopsy measuring [id number]. Jar 0. 4:52 PM [facility] DERMATOPATHOLOGY LABORATORY Microscopic Description Specimen A. SKIN, right abd: This is a compound nevus. There is melanin pigment in the stratum corneum. There is architectural disorder characterized by a lentiginous proliferation of melanocytes between irregular nests of cells along the dermal-epidermal junction, highlighted by MART-1/Melan-A immunohistochemical staining. There is underlying fibroplasia of the papillary dermis. The intradermal component is bland appearance and matures with depth. Original and deeper sections were reviewed. (Compound Fercho's Nevus or Compound Dysplastic Nevus) 4:52 PM [facility] DERMATOPATHOLOGY LABORATORY Disclaimer An external and internal positive and negative controls are appropriate for the histochemical, immunohistochemical and immunofluorescence stain(s) in this case (if any), except where stated explicitly. The performance characteristics of the stain(s) cited in this report were developed and its performance characteristic determined by the Dermatopathology Laboratory at [facility], directed by Dr. Tank Lugo. These tests need not be, and therefore are not, approved by the [place] Food and Drug Administration. The tests are used for clinical purposes. Billing Codes Specimen Charges Stain Charges 15116 1 74091 1 4:52 PM [facility] DERMATOPATHOLOGY LABORATORY Embedded Images 4:52 PM [facility] DERMATOPATHOLOGY LABORATORY Pathology/Cytolo gy TISSUE SPECIMEN FROM SKIN / Unknown 01/18/2021 3:33 AM GAS METER INSTALLER HELPER 01/22/2021 6:31 AM [facility] us Gonzalez Majano MD LAB - PATHOLOGY/CYTOLOGY ORDER MINA Final Result DERMATOPATHOLOGY LABORATORY [facility] - Department of Dermatology [address] [phone] documented in this encounter Visit Diagnoses Not on filedocumented in this encounter
--- OUTSIDE RECORDS SUMMARY | 2025-08-10 11:34 | XMS_ITS | Clinical Summary ---
Author Organization [facility] Address [address] [place] [address] Care Team Providers Care Production Support Engineer Name Role Phone Unavailable Primary Care Provider Unavailabl e Source Comments [facility],non-owned Affiliates and Associated Physician Practices is amultiple site organization consisting of ambulatory clinics and hospital sitesin [place], [place], [place]. This disclosure is being madepursuant to the Care Everywhere program and may not contain all information available regarding this patient. 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 Gender Identity Not on file Sexual Orientation Not on file Plan of Treatment Health Maintenance Due Date Last Done Comments HIV SCREENING 2007 HEPATITIS C SCREENING 11/22/2010 DTAP/TDAP/TD VACCINES (1 - Tdap) 2011 HEPATITIS B VACCINE (1 of 3 - 19+ 3-dose series) 2011 PAP SMEAR 2013 HPV VACCINE (1 - 3-dose SCDM series) 2019 DEPRESSION SCREENING 11/16/2024 COVID-19 VACCINE ( - 2023-2 5 season) 2025 INFLUENZA VACCINE (#1) 2025 ZOSTER VACCINE (1 of 2) 2042 HIB VACCINE Aged Out No longer eligi ble based on patient's age to complete this topic MENINGOCOCCAL (Group B) VACC INE SHARED DECISION-MAKING Aged Out No longer eligibl e based on patient's age to complete this topic MENINGOCOCCAL GROUPS A/C/Y/W VACCINE Aged Out No longer eligible b ased on patient's age to complete this topic PNEUMOCOCCAL VACCINE Aged Out No long er eligible based on patient's age to complete this topic Insurance ANNIE
--- OUTSIDE RECORDS SUMMARY | 2025-08-10 11:34 | XMS_ITS | Encounter Summary ---
Author Organization [facility] Address [address] [place] [address] Care Team Providers Care Independent Sales Representative Name Role Phone Unavailable Primary Care Provider Unavailabl e Encounter Details Date Type Department Care Team (Late st Contact Info) Description 02/05/2023 Lab Requisition [facility] DermPath Lab [address] [place] [address] Gonzalez Majano MD [address] [place] [address] Social History Tobacco Use Types Packs/Day Years Used Date Smoking Tobacco: Never Assessed Comments Unknown Sex and Gender Information Value Date Recorded Sex Assigned at Not on file Legal Sex Female 3:36 PM 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 Gender Identity Not on file Sexual Orientation Not on file documented as of this encounter Plan of Treatment Not on file documented as of this encounter Procedures Procedure Name Priority Date/Time Associated Diagnosis Comments DERMATOPATHOLOGY Routine 02/04/2023 12:0 0 AM CDT documented in this encounter Results * DERMATOPATHOLOGY (02/04/2023 12:00 AM CDT) Case Report Dermatopathology Report Case: [id number] Authorizing Provider: Gonzalez Majano MD Collected: 02/04/2023 12:00 AM Ordering Location: [facility] DermPath Lab Received: 02/05/2023 03:32 PM Pathologist: Karla Lao MD Specimen: Skin, right upper forehead at hairline 3 1:16 PM CDT DERMATOPATHOLOGY LABORATORY Final Diagnosis Specimen A. SKIN, right upper forehead at hairline: DERMAL SCAR, PRESENT AT MARGIN MELANOCYTIC NEOPLASM NOT IDENTIFIED (L90.5) 3 1:16 PM CDT DERMATOPATHOLOGY LABORATORY at 1316 CDT Clinical History Nevus R/O Atypia Path# [id number]. Check Margins. 3 1:16 PM CDT DERMATOPATHOLOGY LABORATORY Gross Description Specimen A: Received is one formalin filled container labeled with the patient's name and designated right upper forehead at hairline. The specimen consists of a non-oriented ellipse of skin measuring 20x7x4 mm. The margin is inked green. The 12 o'clock and 6 o'clock tips are submitted in cassette 1. The remainder of the ellipse is serially sectioned and submitted in cassette 2. Jar 0. 3 1:16 PM CDT DERMATOPATHOLOGY LABORATORY Microscopic Description Specimen A. SKIN, right upper forehead at hairline: There are fibroblasts and collagen bundles oriented parallel to the skin surface. There are elongated blood vessels, some of which are oriented perpendicular to the skin surface. No melanocytic neoplasm is identified. This scar is present at one lateral margin of the specimen in block 2. 3 1:16 PM CDT DERMATOPATHOLOGY LABORATORY Disclaimer An external and internal [...] purposes. Billing Codes Specimen Charges Stain Charges 20702 1 3 1:16 PM CDT DERMATOPATHOLOGY LABORATORY Embedded Images 3 1:16 PM CDT DERMATOPATHOLOGY LABORATORY Pathology/Cytolog y TISSUE SPECIMEN FROM SKIN / Unknown 02/04/2023 02/05/2023 3:32 PM CDT us Gonzalez Majano MD LAB - PATHOLOGY/CYTOLOGY ORDER MINA Final Result DERMATOPATHOLOGY LABORATORY [facility] - Department of Dermatology [address] [phone] documented in this encounter Visit Diagnoses Not on filedocumented in this encounter
--- OUTSIDE RECORDS SUMMARY | 2025-08-10 11:34 | XMS_ITS | Clinical Summary ---
Author Organization 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
== END 2025-08-10 10:24 | disposition home or self-care (01) ==
LOC: ANHFOHIMG 10:24
PROVIDERS: PCP Nurse Practitioner Family; Visit Provider Surgery
DX: N64.52 Nipple discharge (principal)
CPT/HCPCS: 76642; 77062; 77066; G0279